=== PATIENT | male | born 1980 | race African-American/Black ===

== ENCOUNTER 2020-03-28 12:26 | Inpatient (IN) ==
[2020-03-28] MEDS ORDERED: MORPHINE 4 MG/1 ML VIAL ONE (14:12)
[2020-03-28 14:17] LABS: Basophils % 0.3 % (0.0-0.8); Eosinophils # 0.1 10*3/uL (0.0-0.87); Eosinophils % 0.3 % (0.00-10.9); Hemoglobin 16.9 GM/DL (14.0-18.0); Immature Granulocytes % 0.3 %; Immature Granulocytes Absolute 0.05 #; Mean Corpuscular HGB Conc 33.8 GM/DL (32-36); Mean Corpuscular Volume 93.8 FL (87-102); Mean Platelet Volume 11.4 FL (9.6-12.0); Monocytes % 7.7 % (1.7-12.7); Neutrophils % 77.4 % (38.7-73.9); Platelet Count 221 T/CUMM (130-400); Red Blood Count 5.33 MC/CUMM (3.8-5.5); Red Cell Distribution Width 13.3 % (9.3-17.3); White Blood Count 14.6 T/CUMM (4-12)
[2020-03-28] MEDS ORDERED: MORPHINE 4 MG/1 ML VIAL IV STA (14:19)
[2020-03-28 14:33] LABS: Albumin 4.1 G/DL (3.4-5.0); Bilirubin,Total 0.8 MG/DL (0.2-1.0); Calcium 9.6 MG/DL (8.5-10.1); Osmolality,Calculated 267.1 MOS/KG (273-304); Total Protein 8.7 G/DL (6.4-8.3)
[2020-03-28 14:57] LABS: Apearance,Urine CLEAR (Clear); Bilirubin,Urine Negative (Negative); Blood, Urine Negative (Negative); Glucose,Urine (UA) Negative (Negative); Ketones,Urine Negative (Negative); Nitrite,Urine Negative (Negative); Protein,Urine Negative; Urine Color Straw (Yellow); Urine Specific Gravity 1.006 (1.001-1.035); Urine Urobilinogen < 2.0 EU/DL (0.2-1.0); WBC,Urine 49 /HPF (0-6)
[2020-03-28] MEDS ORDERED: DOCUSATE SODIUM 100 MG CAPSULE PO PRN (15:38)
[2020-03-28] MEDS ORDERED: DEXTROSE 50% 25 GM/50 ML VIAL IV PRN (15:38)
[2020-03-28] MEDS ORDERED: ONDANSETRON 4 MG/2 ML VIAL IV PRN (15:38)
[2020-03-28] MEDS ORDERED: GLUCAGON 1 MG VIAL IM PRN (15:38)
[2020-03-28] MEDS ORDERED: ACETAMINOPHEN 325 MG TABLET PO PRN (15:38)
[2020-03-28] MEDS ORDERED: hydrALAZINE 20 MG/1 ML VIAL IV PRN (15:38)
[2020-03-28] MEDS ORDERED: LEVOFLOXACIN INJ 750 MG in PREMIX 1 EACH IV SCH (16:00)
[2020-03-28] MEDS: SODIUM CHLORIDE 0.9% 1,000 ML IV SCH (18:06)
[2020-03-28] MEDS: PIPERACILLIN/TAZOBACTAM 3,375 MG in SODIUM CHLORIDE 0.9% 100 ML IV SCH (18:17)
[2020-03-28] MEDS: VANCOMYCIN INJ 1,500 MG in SODIUM CHLORIDE 0.9% 500 ML IV SCH (20:17)
[2020-03-29] MEDS: PIPERACILLIN/TAZOBACTAM 3,375 MG in SODIUM CHLORIDE 0.9% 100 ML IV SCH ×3 (01:15→23:30)
[2020-03-29 05:57] LABS: Calcium 9.4 MG/DL (8.5-10.1); Osmolality,Calculated 269.1 MOS/KG (273-304)
[2020-03-29 06:31] LABS: Basophils % 0.2 % (0.0-0.8); Eosinophils % 0.2 % (0.00-10.9); Hemoglobin 16.5 GM/DL (14.0-18.0); Immature Granulocytes % 0.5 %; Immature Granulocytes Absolute 0.09 #; Lymphocytes # 2.1 10*3/uL (1.4-4.0); Lymphocytes % 11.8 % (21.2-54.2); Mean Corpuscular Volume 96.5 FL (87-102); Mean Platelet Volume 11.8 FL (9.6-12.0); Monocytes % 5.2 % (1.7-12.7); Neutrophils % 82.1 % (38.7-73.9); Platelet Count 245 T/CUMM (130-400); Red Blood Count 5.18 MC/CUMM (3.8-5.5); Red Cell Distribution Width 13.3 % (9.3-17.3); White Blood Count 17.3 T/CUMM (4-12)
[2020-03-29] MEDS: VANCOMYCIN INJ 1,500 MG in SODIUM CHLORIDE 0.9% 500 ML IV SCH ×2 (08:30→20:38)
[2020-03-29] MEDS ORDERED: BUPIVACAINE 0.25% /EPI 10 ML VIAL ONE (10:49)
[2020-03-29] MEDS ORDERED: LIDOCAINE 1%/EPI INJ 20 ML VIAL ONE (10:49)
[2020-03-29] MEDS ORDERED: cefTRIAXone 1,000 MG in SYRINGE 1 EACH IV ONE ×2 (11:31→12:30)
[2020-03-29] MEDS ORDERED: AZITHROMYCIN 250 MG TABLET PO ONE (11:43)
[2020-03-29] MEDS ORDERED: SUCCINYLCHOLINE 200 MG/10 ML VIAL ONE (12:04)
[2020-03-29] MEDS ORDERED: HYDROmorphone 2 MG/1 ML VIAL ONE (12:04)
[2020-03-29] MEDS ORDERED: SEVOFLURANE 1 UNIT/15 MINUTE INH ONE (12:04)
[2020-03-29] MEDS ORDERED: ONDANSETRON 4 MG/2 ML VIAL ONE ×2 (12:04)
[2020-03-29] MEDS ORDERED: propofoL 200 MG/20 ML VIAL IV ONE (12:04)
[2020-03-29] MEDS ORDERED: LIDOCAINE 2% 5 ML VIAL ONE (12:04)
[2020-03-29] MEDS ORDERED: fentaNYL 100 MCG/2 ML VIAL ONE (12:04)
[2020-03-29] MEDS ORDERED: ONDANSETRON 4 MG/2 ML VIAL IV PRN (12:09)
[2020-03-29] MEDS: HYDROmorphone 2 MG/1 ML VIAL IV PRN ×4 (12:12→12:43)
[2020-03-29] MEDS: PANTOPRAZOLE 40 MG TABLET PO SCH (13:29)
[2020-03-30 07:15] LABS: Basophils # 0.1 10*3/uL (0.0-0.2); Basophils % 0.7 % (0.0-0.8); Eosinophils # 0.2 10*3/uL (0.0-0.87); Eosinophils % 2.5 % (0.00-10.9); Hematocrit 44.9 VOL% (42.0-52.0); Hemoglobin 14.8 GM/DL (14.0-18.0); Immature Granulocytes % 0.2 %; Immature Granulocytes Absolute 0.02 #; Lymphocytes # 1.6 10*3/uL (1.4-4.0); Lymphocytes % 16.1 % (21.2-54.2); Mean Corpuscular Volume 96.4 FL (87-102); Mean Platelet Volume 11.5 FL (9.6-12.0); Neutrophils % 71.5 % (38.7-73.9); Platelet Count 199 T/CUMM (130-400); Red Blood Count 4.66 MC/CUMM (3.8-5.5); Red Cell Distribution Width 13.2 % (9.3-17.3); White Blood Count 9.8 T/CUMM (4-12)
[2020-03-30] MEDS: SODIUM CHLORIDE 0.9% 1,000 ML IV SCH (07:55)
[2020-03-30 07:56] LABS: Osmolality,Calculated 271.8 MOS/KG (273-304)
[2020-03-30] MEDS: PIPERACILLIN/TAZOBACTAM 3,375 MG in SODIUM CHLORIDE 0.9% 100 ML IV SCH (09:21)
[2020-03-30] MEDS: PANTOPRAZOLE 40 MG TABLET PO SCH (09:30)
[2020-03-30] MEDS: VANCOMYCIN INJ 1,500 MG in SODIUM CHLORIDE 0.9% 500 ML IV SCH (13:35)
[2020-03-31] MEDS: VANCOMYCIN INJ 1,500 MG in SODIUM CHLORIDE 0.9% 500 ML IV SCH (00:57)
[2020-03-31 06:04] LABS: Basophils # 0.1 10*3/uL (0.0-0.2); Basophils % 0.9 % (0.0-0.8); Eosinophils # 0.4 10*3/uL (0.0-0.87); Eosinophils % 7.1 % (0.00-10.9); Hematocrit 43.7 VOL% (42.0-52.0); Hemoglobin 14.6 GM/DL (14.0-18.0); Immature Granulocytes % 0.4 %; Immature Granulocytes Absolute 0.02 #; Lymphocytes # 1.7 10*3/uL (1.4-4.0); Lymphocytes % 29.4 % (21.2-54.2); Mean Corpuscular HGB Conc 33.4 GM/DL (32-36); Mean Corpuscular Volume 94.6 FL (87-102); Mean Platelet Volume 11.3 FL (9.6-12.0); Monocytes % 10.5 % (1.7-12.7); Neutrophils % 51.7 % (38.7-73.9); Platelet Count 204 T/CUMM (130-400); Red Blood Count 4.62 MC/CUMM (3.8-5.5); Red Cell Distribution Width 13.2 % (9.3-17.3); White Blood Count 5.6 T/CUMM (4-12)
[2020-03-31 06:18] LABS: Osmolality,Calculated 273.7 MOS/KG (273-304)
[2020-03-31 06:45] LABS: Hypochromasia Slight; Platelet Estimate Adequate
[2020-03-31 07:50] VITALS: BP 116/73
[2020-03-31] MEDS: PANTOPRAZOLE 40 MG TABLET PO SCH (09:21)
== END 2020-03-31 10:05 | disposition home or self-care (01) | DRG 580 ==
LOC: N.ED 12:26 → N.EDINP 15:38 → N.3E 16:16
PROVIDERS: ADMIT Internal Medicine; ATTEND Internal Medicine